=== PATIENT | female | born 1950 | race Caucasian/White ===

== ENCOUNTER → 2019-01-14 09:51 | Outpatient (CLI) | payer MEDICARE, SELFPAY ==
--- NOTE | 2019-01-14 09:56 | XR_ITS ---
XR hand RT min 3V HISTORY: ITS.REASON: pain right index finger ORDERING PHYSICIAN: JERSEY Clarke PATIENT AGE: 68 years COMPARISON: None FINDINGS: There are osteoarthritic changes at the DIP joint of the second digit with bony spurring. No acute fracture or dislocation is evident. There appears to be an old fracture of the base of a bony spur posteriorly at the DIP joint IMPRESSION: Osteoarthritic change of the DIP joint of the second digit with suspected old fracture of a spur posteriorly. No acute fracture apparent
== END ==
PROVIDERS: PCP Emergency Medicine; Visit Provider Physician Assistant
DX: M79.644 Pain in right finger(s) (principal)
CPT/HCPCS: 73130

== ENCOUNTER → 2019-09-21 16:00 | Outpatient (CLI) | payer MEDICARE, SELFPAY ==
[2019-09-24 06:28] LABS: H. pylori Breath Test Negative (Negative)
== END ==
PROVIDERS: Visit Provider Physician Assistant
DX: R10.9 Unspecified abdominal pain (principal)
CPT/HCPCS: 83013

== ENCOUNTER → 2019-11-04 16:51 | Outpatient (CLI) | payer MEDICARE, SELFPAY ==
[2019-11-04 17:26] LABS: Basophils % 0.6 % (0.1-2.0); Eosinophils % 0.5 % (0.1-12.0); Hematocrit 41.8 % (37.0-47.0); Hemoglobin 13.7 g/dL (12.2-16.2); Lymphocytes % 33.3 % (10-50); Mean Corpuscular HGB Conc 32.7 g/dL (31.8-35.4); Mean Corpuscular Hemoglobin 32.4 pg (27.0-31.2); Mean Corpuscular Volume 99.1 fl (81-99); Mean Platelet Volume 8.7 fl (7.4-10.4); Monocytes # 0.3 K/mm3 (0.1-1.0); Monocytes % 4.8 % (1.7-9.3); Neutrophils # 3.7 K/mm3 (1.8-7.8); Neutrophils % 60.9 % (37.0-80.0); Platelet Count 291 K/mm3 (142-424); Red Blood Count 4.22 M/mm3 (4.20-5.40); Red Cell Distribution Width 12.8 % (11.5-17.5)
[2019-11-04 17:30] LABS: Alanine Aminotransferase 15 U/L (12-78); Albumin Level 4.5 g/dl (3.5-5.0); Albumin/Globulin Ratio 1.7 (1.1-1.8); Alkaline Phosphatase 105 U/L (38-126); Amylase 80 U/L (30-110); Aspartate Amino Transferase 27 U/L (14-36); Bilirubin,Total 0.2 mg/dl (0.2-1.3); Blood Urea Nitrogen 15 mg/dl (7-17); Calcium 9.8 mg/dl (8.4-10.2); Carbon Dioxide 30 mmol/L (22.0-30.0); Chloride 101 mmol/L (98-107); Chol/HDL Ratio 6.2 (1-3.5); Cholesterol 237 mg/dl (140-200); Estimated Glomerular Filt Rate 99 ml/min (>60); GFR (African American) 120 ML/MIN (>60); Globulin 2.7 g/dL (1.3-3.2); Glucose 83 mg/dl (74-100); HDL Cholesterol 38 mg/dl (40-60); Lipase 95 U/L (23-300); Total Protein,Serum 7.2 g/dl (6.3-8.2); Triglycerides 217 mg/dl (30-150); VLDL Cholesterol 43 mg/dL (0-40)
[2019-11-04 17:40] LABS: Anion Gap 9.2 mEq/L (5-15); Potassium 4.2 mmoL/L (3.5-5.1); Sodium 136 mmol/L (136-145)
[2019-11-04 18:00] LABS: T4 (Thyroxine) 10.9 ug/dl (5.53-11.0)
[2019-11-04 18:14] LABS: Thyroid Stimulating Hormone 2.78 uIU/mL (0.465-4.68)
[2019-11-06 08:45] LABS: Vitamin D 25 Hydroxy 29.1 ng/mL (30.0-100.0)
== END ==
PROVIDERS: Visit Provider Physician Assistant
DX: R10.13 Epigastric pain (principal); I10 Essential (primary) hypertension; F41.9 Anxiety disorder, unspecified; Z80.0 Family history of malignant neoplasm of digestive organs
CPT/HCPCS: 80053; 80061; 82150; 82652; 83520; 83690; 84436; 84443; 85025

== ENCOUNTER → 2019-11-17 14:04 | Outpatient (CLI) | payer MEDICARE, SELFPAY ==
--- NOTE | 2019-11-17 14:04 | CT_ITS ---
PROCEDURE: CT ABDOMEN PELVIS WO CON CLINICAL INDICATION: Epigastric pain, periumbilical pain Periumbilical pain COMPARISON: No exams were available for comparison TECHNIQUE: Axial images obtained with sagittal and coronal reformats. All CT scans at the facility use one or more dose reduction, viz: automated exposure control, ma/kV adjustment per patient size (including targeted exams where dose is matched to indication, i.e. head), or iterative reconstruction technique. FINDINGS: LOWER THORAX: Patchy density is present in the right lung base posteriorly may be due to small area of infiltrate or atelectasis. ABDOMEN & PELVIS: Liver, gallbladder, spleen, adrenal glands, pancreas, and kidneys have an unremarkable unenhanced CT appearance. No evidence of appendicitis or diverticulitis. There is diverticulosis of the descending and sigmoid colon. No intestinal obstruction or free air. There is a mild amount of retained colonic feces. No pelvic mass or abnormal fluid collection. No acute bony anomalies. There is degenerative disc disease at L5-S1. IMPRESSION: 1. No acute abdominal or pelvic findings. 2. Diverticulosis of the descending and sigmoid colon but no evidence of diverticulitis. 3. Patchy density right lung base posteriorly which may be due to small area of atelectasis or infiltrate. Dictated by: Paul Muller MD 11/18/2019 13:27 Electronically signed by Paul Muller MD in [facility] 11/18/2019 13:27
== END ==
PROVIDERS: PCP Physician Assistant; Visit Provider Physician Assistant
DX: R10.13 Epigastric pain (principal)
CPT/HCPCS: 74176

== ENCOUNTER → 2020-10-13 11:12 | Outpatient (CLI) | payer MEDICARE, SELFPAY ==
[2020-10-13 11:37] LABS: Basophils % 0.6 % (0.1-2.0); Eosinophils # 0.1 K/mm3 (0.0-0.4); Eosinophils % 1.1 % (0.1-12.0); Hematocrit 46.7 % (37.0-47.0); Hemoglobin 15.4 g/dL (12.2-16.2); Lymphocytes # 1.5 K/mm3 (0.7-4.5); Lymphocytes % 25.9 % (10-50); Mean Corpuscular HGB Conc 32.9 g/dL (31.8-35.4); Mean Corpuscular Hemoglobin 32.5 pg (27.0-31.2); Mean Corpuscular Volume 98.6 fl (81-99); Mean Platelet Volume 8.4 fl (7.4-10.4); Monocytes # 0.3 K/mm3 (0.1-1.0); Monocytes % 4.7 % (1.7-9.3); Neutrophils % 67.7 % (37.0-80.0); Platelet Count 276 K/mm3 (142-424); Red Blood Count 4.73 M/mm3 (4.20-5.40); Red Cell Distribution Width 13.3 % (11.5-17.5); White Blood Count 5.9 K/mm3 (4.8-10.8)
[2020-10-13 12:31] LABS: Alanine Aminotransferase 12 U/L (12-78); Albumin Level 4.8 g/dl (3.5-5.0); Albumin/Globulin Ratio 1.8 (1.1-1.8); Alkaline Phosphatase 87 U/L (38-126); Anion Gap 12.7 mEq/L (5-15); Aspartate Amino Transferase 22 U/L (14-36); Bilirubin,Total 0.4 mg/dl (0.2-1.3); Blood Urea Nitrogen 11 mg/dl (7-17); Calcium 9.9 mg/dl (8.4-10.2); Carbon Dioxide 34 mmol/L (22.0-30.0); Chloride 100 mmol/L (98-107); Chol/HDL Ratio 4.3 (1-3.5); Cholesterol 200 mg/dl (140-200); Estimated Glomerular Filt Rate 99 ml/min (>60); GFR (African American) 120 ML/MIN (>60); Globulin 2.7 g/dL (1.3-3.2); Glucose 107 mg/dl (74-100); HDL Cholesterol 46 mg/dl (40-60); Potassium 3.7 mmoL/L (3.5-5.1); Sodium 143 mmol/L (136-145); Total Protein,Serum 7.5 g/dl (6.3-8.2); Triglycerides 124 mg/dl (30-150); VLDL Cholesterol 25 mg/dL (0-40)
[2020-10-13 12:42] LABS: Direct LDL Cholesterol 126.25 mg/dL (100-129)
[2020-10-13 13:01] LABS: Thyroid Stimulating Hormone 1.32 uIU/mL (0.465-4.68)
[2020-10-15 22:02] LABS: H. pylori Breath Test Negative (Negative)
== END ==
PROVIDERS: Visit Provider Nurse Practitioner Family
DX: R10.9 Unspecified abdominal pain (principal); E78.5 Hyperlipidemia, unspecified
CPT/HCPCS: 36415; 80053; 80061; 83013; 84436; 84443; 85025

== ENCOUNTER → 2020-11-10 09:19 | Outpatient (CLI) | payer MEDICARE, SELFPAY ==
--- NOTE | 2020-11-10 09:19 | US_ITS ---
PROCEDURE: US ABDOMEN LIMITED CLINICAL INDICATION: upper gastric pain COMPARISON: No exams were available for comparison FINDINGS: PANCREAS: Unremarkable. No obvious mass or abnormal fluid collection. No ductal dilatation LIVER: No focal liver lesions demonstrated. Homogeneous echogenicity. No intrahepatic biliary ductal dilatation evident. There is appropriate direction of blood flow within a non dilated portal vein RIGHT KIDNEY: Unremarkable. Normal size and echogenicity. No hydronephrosis GALLBLADDER: No gallstones, gallbladder wall thickening, pericholecystic fluid, or biliary dilatation. Minimal amount of sludge noted in the gallbladder. IMPRESSION: Minimal amount of sludge in the gallbladder otherwise negative. No shadowing stones. Dictated by: Paul Muller MD 11/10/2020 17:52 Paul Muller MD in [facility] 11/10/2020 17:52
== END ==
PROVIDERS: PCP Physician Assistant; Visit Provider Nurse Practitioner Family
DX: R10.9 Unspecified abdominal pain (principal)
CPT/HCPCS: 76705

== ENCOUNTER → 2020-11-21 10:07 | Outpatient (CLI) | payer MEDICARE, SELFPAY ==
--- NOTE | 2020-11-21 10:07 | NM_ITS ---
PROCEDURE: NM HEPATOBILIARY WO PHARM CLINICAL INDICATION: abd pain COMPARISON: No exams were available for comparison TECHNIQUE: DOSE: 8.16 mCi technetium Choletec. FINDINGS: Homogeneous activity is present within the hepatic parenchyma. Activity is present in the gallbladder by 5 minutes. Activity is present in the small bowel by 60 minutes. The gallbladder ejection fraction is calculated to be 82 percent.. The patient drank Ensure for fatty meal with no pain involved. IMPRESSION: No evidence of common or cystic duct obstruction with normal gallbladder ejection fraction. Unremarkable hepatobiliary scan Dictated by: Paul Muller MD 11/21/2020 18:43 Paul Muller MD in [facility] 11/21/2020 18:43
--- NOTE | 2020-11-21 10:46 | HMH.ITSHM ---
Current Home Medications as stated by this patient Montse Salinas or operations representative. []CALCIUM
== END ==
PROVIDERS: PCP Nurse Practitioner Family; Visit Provider Nurse Practitioner Family
DX: R93.2 Abnormal findings on diagnostic imaging of liver and biliary tract (principal)
CPT/HCPCS: 78226; A9537

== ENCOUNTER → 2020-12-02 10:11 | Outpatient (CLI) | payer MEDICARE, SELFPAY ==
[2020-12-02 11:35] LABS: Coronavirus 19 IgG Antibody Positive (Negative); Coronavirus 19 IgM Antibody Negative (Negative)
== END ==
PROVIDERS: Visit Provider Internal Medicine Gastroenterology
DX: Z01.818 Encounter for other preprocedural examination (principal); Z20.822 Contact with and (suspected) exposure to COVID-19; Z13.810 Encounter for screening for upper gastrointestinal disorder
CPT/HCPCS: 36415; 86328

== ENCOUNTER 2020-12-04 10:35 | Day surgery (SDC) | payer MEDICARE, SELFPAY ==
[2020-11-28 09:31] VITALS: BMI 19.5
[2020-12-04 10:50] VITALS: BP 138/71; PULSE 75; RESP 18; TEMP 36.4; O2SAT 98
[2020-12-04 11:24] VITALS: O2SAT 95
--- NOTE | 2020-12-04 11:45 | HMH.PROC ---
[facility] Procedure Note Procedure Note:: Upper Endoscopy Procedure Report: Esophagogastroduodenoscopy with cold biopsies Endoscopost: Juan Handy II, MD Referring Physician: MERE Arana Date of Procedure: December 04, 2020 Equipment: Olympus GIF 190 standard upper endoscope Sedation: MAC sedation Indications: Mrs. Salinas is a 70-year-old female who has a long history of irritable bowel syndrome (IBS diarrhea) since the mid . Over the last year, she has had more epigastric and left upper quadrant abdominal discomfort. This has progressively worsened. She has some occasional bloating and seldom nausea. She does have some belching. She reports no heartburn, reflux or dysphagia. She has had no early satiety or weight loss. She reports no melena or hematochezia. She does state that her symptoms are worsened 1 time a month and she attributes this to something external (possibly water treatment). The patient does take ibuprofen 2 or 3 times weekly. She does have numerous drug allergies. Procedure: Prior to the procedure, a history and physical exam was performed, and patient's medications and allergies were reviewed. The risks, benefits and alternatives of the sedation and procedure were discussed with the patient. All questions were answered and informed consent was obtained. The patient was brought to the procedure room. Patient identification and proposed procedure were verified by the physician and the nurse. The patient was placed in a left lateral decubitus position and the scope was passed under direct vision. Throughout the procedure, the patient's blood pressure, pulse, and oxygen saturations were monitored continuously. The upper GI endoscopy was accomplished without difficulty. The patient tolerated the procedure well. Findings: The scope was passed directly into the upper esophagus and advanced to the third portion of the duodenum. The post bulbar duodenum and duodenal bulb were normal with normal mucosa and conniventes. Cold biopsies were taken from the post bulbar duodenum and duodenal bulb to rule out celiac disease. The scope was withdrawn through a normal duodenal bulb and pylorus into the stomach. There was bile reflux with moderate linear reactive gastropathy of the antrum, body and fundus with some erosive gastropathy. Upon retroflexion there was no hiatal hernia. 2 biopsies were taken in the antrum and along the lesser curvature for histology to rule out gastritis and/or H pylori. The scope was then withdrawn into the esophagus. There was no evidence of reflux esophagitis or Aguiar's. The remainder of the esophageal mucosa was normal. Impression: 1. Bile reflux with linear erosive gastropathy Plan: I will follow-up the biopsies. The patient does have functional dyspepsia associated with her IBS. We will discuss dietary measures and treatment options. I would recommend C 13 sucrose breath testing.
[2020-12-04 11:46] VITALS: BP 119/65; PULSE 60; RESP 18; TEMP 36.2; O2SAT 96
[2020-12-04 11:56] VITALS: BP 119/59; PULSE 50; RESP 16; O2SAT 99
[2020-12-04 12:06] VITALS: BP 136/61; PULSE 50; RESP 16; O2SAT 98
[2020-12-04 12:16] VITALS: BP 123/68; PULSE 50; RESP 16; TEMP 36.2; O2SAT 98
--- NOTE | 2020-12-04 15:14 | HMH.ANESCL ---
[facility] Anesthesia Checklist - Patient Identification Patient Identification: Arm Band - Structural Data Admitted From: Home Planned Operative Procedure/s: egd Consent for Planned Operative Procedure(s) Verified: Yes Verified Documents: Surgical Consent, History and Physical - NPO Status Verified Time NPO: 00:00 - Additional verifications Anesthesia Reactions: No - Airway Assessment C-Spine Mobility Assessed: Yes (mp2) TMJ Mobility Assessed: Yes Dentition: Dentures-good fit - Neurological Assessment Level of Consciousness: Awake, Alert - Anesthesia Plan Anesthesia Risk discussed: Yes Anesthesia Plan: Verified ASA Class: II Anesthesia Type: MAC [facility] History I have reviewed the patient's past medical history: Yes Medical History: Reports:: Palpitations Denies:: Cancer, Chronic Obstructive Pulmonary Disease (COPD), Diabetes Mellitus Type 1, Diabetes Mellitus Type 2, MRSA, Seizures *Have you ever received a pneumonia vaccine?: Yes *Have you received a flu vaccine this season?: Yes Other Medical History: Reports: Arthritis, Other Anesthesia experience/problems:: nac Other Surgeries: Yes: Cardiac Catheterization, Colonoscopy, Other Amputation: No Fractures: No - *Social History Last grade of school completed: High school graduate Smoking Status: Current some day smoker Tobacco Type: cigarettes # Packs/Day (cigarettes): 1 Alcohol Intake: never Substance Use Type: denies use *Occupational Status:: other *Travel in the last 8 weeks: None Family Hx:: Cancer, Hypertension, Heart Attack, Stroke
== END 2020-12-04 12:18 | disposition home or self-care (01) ==
LOC: OUTP 10:37
PROVIDERS: PCP Nurse Practitioner Family; Visit Provider Internal Medicine Gastroenterology
PROC: 0DJ08ZZ Inspection of Upper Intestinal Tract, Via Natural or Artificial Opening Endoscopic (ICD-10-PCS; CPT 43235; principal; 2020-12-04 11:30)
DX: K21.9 Gastro-esophageal reflux disease without esophagitis (principal); K31.9 Disease of stomach and duodenum, unspecified; R00.2 Palpitations; M19.90 Unspecified osteoarthritis, unspecified site; Z72.0 Tobacco use; Z80.9 Family history of malignant neoplasm, unspecified; Z82.49 Family history of ischemic heart disease and other diseases of the circulatory system; Z82.3 Family history of stroke; Z88.6 Allergy status to analgesic agent; Z88.8 Allergy status to other drugs, medicaments and biological substances; Z91.048 Other nonmedicinal substance allergy status
CPT/HCPCS: 43239; 88305

== ENCOUNTER → 2021-03-27 08:49 | Outpatient (CLI) | payer MEDICARE, SELFPAY ==
--- NOTE | 2021-03-27 08:54 | XR_ITS ---
PROCEDURE: XR KNEE RT 4V CLINICAL INDICATION: right knee pain COMPARISON: No exams were available for comparison FINDINGS: No fracture or dislocation. No lytic or blastic change. There is normal mineralization. There is decrease in the joint space medially which may be seen with mild osteoarthritic change. No osteophytes or significant osteosclerosis. IMPRESSION: Minimal osteoarthritic change medial compartment Dictated by: Paul Muller MD 03/27/2021 09:28 Paul Muller MD in [place] 03/27/2021 09:28
--- NOTE | 2021-03-27 08:54 | XR_ITS ---
PROCEDURE: XR HIP RT 2-3V W/PELVIS CLINICAL INDICATION: right hip pain COMPARISON: CR,DX BONE BONE DENSITOMETRY(HIP:LT SPINE from 11/04/2013 CR BONE3 BONE DENSITOMETRY(HIP:LT SPINE from 07/08/2016 FINDINGS: No fracture or dislocation is evident. No significant degenerative change. No lytic or blastic change. Unremarkable soft tissues.. There is generalized vascular calcification. Mild osteoarthritic changes are present involving the left SI joint. IMPRESSION: Negative right hip. Mild osteoarthritic change of the left SI joint Dictated by: Paul Mullre MD 03/27/2021 09:29 Paul Muller MD in [facility] 03/27/2021 09:29
== END ==
PROVIDERS: PCP Emergency Medicine; Visit Provider Orthopaedic Surgery
DX: M25.551 Pain in right hip (principal); M25.561 Pain in right knee
CPT/HCPCS: 73502; 73564

== ENCOUNTER → 2021-05-28 18:11 | Outpatient (CLI) | payer MEDICARE, SELFPAY ==
[2021-05-28 19:05] LABS: Basophils # 0.1 K/mm3 (0-0.2); Basophils % 0.9 % (0.1-2.0); Eosinophils # 0.1 K/mm3 (0.0-0.4); Eosinophils % 1.1 % (0.1-12.0); Hematocrit 44.1 % (37.0-47.0); Hemoglobin 14.9 g/dL (12.2-16.2); Lymphocytes # 2.4 K/mm3 (0.7-4.5); Lymphocytes % 34.2 % (10-50); Mean Corpuscular HGB Conc 33.7 g/dL (31.8-35.4); Mean Corpuscular Hemoglobin 32.5 pg (27.0-31.2); Mean Corpuscular Volume 96.4 fl (81-99); Mean Platelet Volume 7.7 fl (7.4-10.4); Monocytes # 0.3 K/mm3 (0.1-1.0); Monocytes % 4.4 % (1.7-9.3); Neutrophils # 4.2 K/mm3 (1.8-7.8); Neutrophils % 59.5 % (37.0-80.0); Platelet Count 398 K/mm3 (142-424); Red Blood Count 4.58 M/mm3 (4.20-5.40); Red Cell Distribution Width 12.2 % (11.5-17.5)
[2021-05-28 19:40] LABS: Chloride 99 mmol/L (98-107); Potassium 3.8 mmoL/L (3.5-5.1); Sodium 140 mmol/L (136-145)
[2021-05-28 19:43] LABS: Alanine Aminotransferase 13 U/L (12-78); Albumin Level 4.3 g/dl (3.5-5.0); Albumin/Globulin Ratio 1.5 (1.1-1.8); Alkaline Phosphatase 97 U/L (38-126); Anion Gap 15.8 mEq/L (5-15); Aspartate Amino Transferase 23 U/L (14-36); Blood Urea Nitrogen 9 mg/dl (7-17); Carbon Dioxide 29 mmol/L (22.0-30.0); Estimated Glomerular Filt Rate 99 ml/min (>60); GFR (African American) 119 ML/MIN (>60); Globulin 2.8 g/dL (1.3-3.2); Total Protein,Serum 7.1 g/dl (6.3-8.2)
[2021-05-28 19:44] LABS: Calcium 9.4 mg/dl (8.4-10.2); Glucose 81 mg/dl (74-100)
[2021-05-28 19:45] LABS: Bilirubin,Total 0.1 mg/dl (0.2-1.3)
[2021-05-28 20:14] LABS: Thyroid Stimulating Hormone 1.05 uIU/mL (0.465-4.68)
[2021-05-30 06:30] LABS: HIV Screen 4th Generation wRfx Non Reactive (Non Reactive); Hep A Ab, IgM Negative (Negative); Hep A Ab, Total Negative (Negative); Hep B Core Ab, Total Negative (Negative); Hep B Surface Ab, Qual Non Reactive (.); Hepatitis B Surface Antigen Negative (Negative); Hepatitis C Antibody <0.1 s/co ratio (0.0-0.9)
[2021-05-31 04:14] LABS: ALT (SGPT) P5P 15 IU/L (0-40); Alpha 2-Macroglobulins, Qn 183 mg/dL (110-276); Apolipoprotein A-1 138 mg/dL (116-209); Bilirubin, Total 0.1 mg/dL (0.0-1.2); Fibrosis Score 0.04 (0.00-0.21); GGT 11 IU/L (0-60); Haptoglobin 332 mg/dL (42-346); Necroinflammat Activity Grade A0-No activity (.); Necroinflammat Activity Score 0.03 (0.00-0.17)
== END ==
PROVIDERS: Visit Provider Family Medicine
DX: I10 Essential (primary) hypertension (principal); Z20.5 Contact with and (suspected) exposure to viral hepatitis; N39.0 Urinary tract infection, site not specified; Z09 Encounter for follow-up examination after completed treatment for conditions other than malignant neoplasm; R33.9 Retention of urine, unspecified; Z11.4 Encounter for screening for human immunodeficiency virus [HIV]; B96.89 Other specified bacterial agents as the cause of diseases classified elsewhere; E80.7 Disorder of bilirubin metabolism, unspecified
CPT/HCPCS: 80053; 81596; 84443; 85025; 86703; 86704; 86706; 86708; 87086; 87088; 87340; 87380; 87522; G0432

== ENCOUNTER → 2021-06-15 07:52 | Outpatient (CLI) | payer MEDICARE, SELFPAY ==
--- NOTE | 2021-06-15 07:53 | CT_ITS ---
PROCEDURE: CT ABDOMEN PELVIS WO CON CLINICAL INDICATION: urinary retention, rlq pain COMPARISON: CT CT ABDOMEN PELVIS WO CON from 11/17/2019 TECHNIQUE: Axial images obtained with sagittal and coronal reformats. All CT scans at the facility use one or more dose reduction, viz: automated exposure control, ma/kV adjustment per patient size (including targeted exams where dose is matched to indication, i.e. head), or iterative reconstruction technique. FINDINGS: LOWER THORAX: Scarring is present in the lung bases ABDOMEN & PELVIS: The liver, gallbladder, spleen, adrenal glands, pancreas, and kidneys have an unremarkable appearance. No renal or ureteral calculi. No intestinal obstruction or free air. No evidence of appendicitis. There is diverticulosis of the descending and sigmoid colon. No evidence of diverticulitis. No pelvic mass or abnormal fluid collection. Multiple unopacified bowel loops in the abdomen or pelvis which could obscure or mimic pathology. If symptoms persist, consider repeat exam with IV and oral contrast. Atherosclerotic changes involve the aortoiliac vessels with suspected occlusion or critical stenosis of the proximal aspect of the right common iliac artery Degenerative disc disease L5-S1 with 5 mm anterolisthesis of L5. IMPRESSION: No acute finding. Colonic diverticulosis. No evidence of diverticulitis. 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 Dictated by: Paul Muller MD 06/16/2021 11:06 Paul Muller MD in [facility] 06/16/2021 11:06
== END ==
PROVIDERS: PCP Emergency Medicine; Visit Provider Family Medicine
DX: R10.31 Right lower quadrant pain (principal); R33.9 Retention of urine, unspecified
CPT/HCPCS: 74176

== ENCOUNTER 2021-12-12 08:14 | Emergency (ER) | payer MEDICARE, SELFPAY ==
--- NOTE | 2021-12-12 08:13 | ECG_ITS ---
APPROVED REPORT Exam: Resting ECG HR:95 bpm ECG Measurements Heart Rate 95 AXES WI 171 P 90 QRSd 81 QRS 39 QT 339 T 86 QTc 392 Conclusion SINUS RHYTHM Biatrial abnormality BORDERLINE ECG UNCONFIRMED REPORT Electronically signed by : Jackson Guadalupe MD 12/13/2021 16:02:26
[2021-12-12 08:14] VITALS: BP 125/70; PULSE 90; RESP 19; TEMP 37.1; O2SAT 98; BMI 17.7
--- NOTE | 2021-12-12 08:16 | HMH.EDGENADL ---
ED Disposition Clinical Impression: Influenza A Strain of chest wall Qualifiers: Encounter type: initial encounter Qualified Code(s): S29.011A - Strain of muscle and tendon of front wall of thorax, initial encounter Disposition: Home, Self-Care Condition on Discharge: Good Instructions: DI for Influenza -- Adult Additional Instructions: Rest and drink plenty of fluids. Tylenol or ibuprofen for pain and fever. Benzonatate Perles as needed for cough. Follow-up with primary care provider if not improved next week. Prescriptions: Benzonatate [Benzonatate 100mg cap] 100 mg PO TIDP PRN #15 cap PRN Reason: Cough Transmission Status: Received by [facility] #[id number] Referrals: Rex Cherry MD [Primary Care Provider] - - Critical Care Critical Care Time: No Attestation: On , the high probability of a clinically significant, sudden or life threatening deterioration of the following system(s) required my full and direct attention, intervention and personal management. The time I documented below is in addition to time spent performing reported procedures but includes the following listed in this critical care notation. Medical Decision Making - [place] Inquiry Pt receiving controlled substance: No Vital Signs: 12/12/21 08:14 12/12/21 08:30 12/12/21 09:30 Temperature 98.8 F Temperature Source Oral Pulse Rate 98 H 69 Pulse Rate [Right Radial] 90 Respiratory Rate 19 18 21 Blood Pressure 122/69 144/69 H Blood Pressure [Right Arm] 125/70 Blood Pressure Mean 105 94 Blood Pressure Mean [Right Arm] 88 02 Sat by Pulse Oximetry 98 95 93 L 12/12/21 10:18 Temperature 98.8 F Temperature Source Pulse Rate 70 Pulse Rate [Right Radial] Respiratory Rate 28 H Blood Pressure 141/65 H Blood Pressure [Right Arm] Blood Pressure Mean Blood Pressure Mean [Right Arm] 02 Sat by Pulse Oximetry - Lab Data Lab Results 12/12/21 08:20: WBC 3.7 L, RBC 4.50, Hgb 14.5, Hct 43.9, MCV 97.5, MCH 32.2 H, MCHC 33.0, RDW 13.8, Plt Count 199, MPV 8.7, Neut % (Auto) 77.3, Lymph % (Auto) 11.1, [place] % (Auto) 8.1, Eos % (Auto) 0.6, Baso % (Auto) 2.9 H, Neut # (Auto) 2.8, Lymph # (Auto) 0.4 L, [place] # (Auto) 0.3, Eos # (Auto) 0.0, Baso # (Auto) 0.1 12/12/21 08:20: Sodium 136, Potassium 3.8, Chloride 100, Carbon Dioxide 27, Anion Gap 12.8, BUN 11, Creatinine 0.60, Estimated Creat Clear 41, Estimated GFR 99, Est GFR ( Amer) 119, Glucose 96, Calcium 8.9 12/12/21 08:20: Troponin I < 0.01 12/12/21 08:43: SARS-CoV-2 (PCR) Not detected, Influenza A Untype (PCR) Detected A, Influenza Type B (PCR) Not detected Result diagrams: 12/12/21 08:20 12/12/21 08:20 Orders (Tests/Meds): ED MEDICATIONS Discontinued Medications Generic Name Dose Route Start Last Admin Trade Name Freq PRN Reason Stop Dose Admin Sodium Chloride 10 ml 12/12/21 08:28 Sodium Chloride 0.9% 10ml Flush Syringe IV 01/11/22 08:27 NEEDED PRN Maintain IV Site - Radiology Data #1 Image(s): Chest (+ ribs) Image Reviewed: Yes I reviewed the patient's radiology image, Yes I have reviewed radiologist's interpretation Procedure(s): XR ribs BI min 4V w CXR1V Accession Number(s): [id number] cc: Rex Cherry MD; Mohinder Reyes MD~ FINAL REPORT CLINICAL HISTORY: ribs hurt, cough, no injury FINDINGS: BILATERAL RIB SERIES Three views of the bilateral ribs show no fractures. There is no pneumothorax or pleural fluid collection. IMPRESSION: Negative bilateral rib series. No pneumothorax. Reviewed, Interpreted and Dictated by Mohinder Reyes III, MD Transcribed by Ruth Ann De La O Authenticated by Mohinder Reyes III, MD on 12/12/2021 09:55:[address] [facility] Procedure(s): XR chest 2V Accession Number(s): [id number] cc: Rex Cherry MD; Mohinder Reyes MD~ FINAL REPORT CLINICAL HISTORY: cough, fever, rib pain, smoker FINDINGS: Two views of t
--- NOTE | 2021-12-12 08:28 | XR_ITS ---
FINAL REPORT CLINICAL HISTORY: ribs hurt, cough, no injury FINDINGS: BILATERAL RIB SERIES Three views of the bilateral ribs show no fractures. There is no pneumothorax or pleural fluid collection. IMPRESSION: Negative bilateral rib series. No pneumothorax. Reviewed, Interpreted and Dictated by Mohinder Reyes III, MD Transcribed by Ruth Ann De La O Authenticated by Mohinder Reyes III, MD on 12/12/2021 09:55:16 AM [facility]
--- NOTE | 2021-12-12 08:28 | XR_ITS ---
FINAL REPORT CLINICAL HISTORY: cough, fever, rib pain, smoker FINDINGS: Two views of the chest were obtained. The heart size and pulmonary vascularity are within normal limits. The mediastinum is normal. There is bilateral apical scarring and pleural thickening. There is no pneumothorax. The bony thorax is intact. IMPRESSION: Bilateral apical scarring and pleural thickening. Reviewed, Interpreted and Dictated by Mohinder Reyes III, MD Transcribed by Ruth Ann De La O Authenticated by Mohinder Reyes III, MD on 12/12/2021 09:55:18 AM [facility]
[2021-12-12 08:30] VITALS: BP 122/69; PULSE 98; RESP 18; O2SAT 95
[2021-12-12 08:35] LABS: Basophils # 0.1 K/mm3 (0-0.2); Basophils % 2.9 % (0.1-2.0); Eosinophils % 0.6 % (0.1-12.0); Hematocrit 43.9 % (37.0-47.0); Hemoglobin 14.5 g/dL (12.2-16.2); Lymphocytes # 0.4 K/mm3 (0.7-4.5); Lymphocytes % 11.1 % (10-50); Mean Corpuscular Hemoglobin 32.2 pg (27.0-31.2); Mean Corpuscular Volume 97.5 fl (81-99); Mean Platelet Volume 8.7 fl (7.4-10.4); Monocytes # 0.3 K/mm3 (0.1-1.0); Monocytes % 8.1 % (1.7-9.3); Neutrophils # 2.8 K/mm3 (1.8-7.8); Neutrophils % 77.3 % (37.0-80.0); Platelet Count 199 K/mm3 (142-424); Red Cell Distribution Width 13.8 % (11.5-17.5); White Blood Count 3.7 K/mm3 (4.8-10.8)
[2021-12-12 08:44] LABS: Anion Gap 12.8 mEq/L (5-15); Blood Urea Nitrogen 11 mg/dl (7-17); Calcium 8.9 mg/dl (8.4-10.2); Carbon Dioxide 27 mmol/L (22.0-30.0); Chloride 100 mmol/L (98-107); Creatinine Clearance Estimated 41 mL/min (50-200); Estimated Glomerular Filt Rate 99 ml/min (>60); GFR (African American) 119 ML/MIN (>60); Glucose 96 mg/dl (74-100); Potassium 3.8 mmoL/L (3.5-5.1); Sodium 136 mmol/L (136-145)
[2021-12-12 08:48] LABS: Coronavirus 19, PCR Not Detected (NotDetected); Influenza B, PCR Not Detected (NotDetected)
--- NOTE | 2021-12-12 09:00 | PC.NURSE ---
to and from ct
[2021-12-12 09:30] VITALS: BP 144/69; PULSE 69; RESP 21; O2SAT 93
[2021-12-12 09:33] LABS: Influenza A, PCR Detected (NotDetected)
[2021-12-12 09:38] LABS: Troponin I < 0.01 ng/ml (0.00-0.034)
[2021-12-12 10:18] VITALS: BP 141/65; PULSE 70; RESP 28; TEMP 37.1; O2SAT 93
== END 2021-12-12 10:19 | disposition home or self-care (01) ==
PROVIDERS: Emergency Provider Emergency Medicine; PCP Emergency Medicine
DX: J10.1 Influenza due to other identified influenza virus with other respiratory manifestations (principal); S29.011A Strain of muscle and tendon of front wall of thorax, initial encounter; F17.210 Nicotine dependence, cigarettes, uncomplicated
CPT/HCPCS: 71046; 71111; 80048; 84484; 85025; 93005; 99283; C9803; U0003; U0005

== ENCOUNTER → 2022-01-22 13:32 | Outpatient (POV) | payer MEDICARE, SELFPAY | PROVIDERS: Visit Provider Dermatology | DX: Z00.00 Encounter for general adult medical examination without abnormal findings (principal) ==

== ENCOUNTER → 2022-06-27 10:27 | Outpatient (CLI) | payer MEDICARE, SELFPAY ==
--- NOTE | 2022-06-27 10:46 | XR_ITS ---
FINAL REPORT CLINICAL HISTORY: right foot pain FINDINGS: Right foot Three views were obtained. There is no acute fracture or dislocation. The bones are osteopenic. The joint spaces appear normal. No soft tissue abnormality is identified. IMPRESSION: No acute process. Reviewed, Interpreted and Dictated by Thomas Alatorre MD Transcribed by Katia Jenkins Authenticated and [facility]
--- NOTE | 2022-06-27 10:46 | XR_ITS ---
FINAL REPORT CLINICAL HISTORY: ankle pain FINDINGS: Right ankle Three views were obtained. There is no acute fracture or dislocation. The joint spaces appear normal. No soft tissue abnormality is identified. IMPRESSION: No acute process. Reviewed, Interpreted and Dictated by Thomas Alatorre MD Transcribed by Katia Jenkins Authenticated and [facility]
--- NOTE | 2022-06-27 10:46 | XR_ITS ---
FINAL REPORT CLINICAL HISTORY: right shoulder pain FINDINGS: Right shoulder Three views were obtained. There is no acute fracture or dislocation. The joint spaces appear normal. No soft tissue abnormality is identified. IMPRESSION: No acute process. Reviewed, Interpreted and Dictated by Thomas Alatorre MD Transcribed by Katia Jenkins Authenticated and [facility]
== END ==
PROVIDERS: PCP Emergency Medicine; Visit Provider Orthopaedic Surgery
DX: M79.671 Pain in right foot (principal); M25.571 Pain in right ankle and joints of right foot; M25.511 Pain in right shoulder
CPT/HCPCS: 73030; 73610; 73630

== ENCOUNTER 2022-06-28 14:30 | Outpatient (RCR) | payer MEDICARE, SELFPAY | END 2022-06-28 15:30 | disposition home or self-care (01) | LOC: PT 14:30 | PROVIDERS: Visit Provider Orthopaedic Surgery | DX: M25.571 Pain in right ankle and joints of right foot (principal) | CPT/HCPCS: 97760 ==

== ENCOUNTER → 2022-07-08 15:44 | Outpatient (CLI) | payer OTHER, SELFPAY ==
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
== END ==
PROVIDERS: PCP Family Medicine; Visit Provider Family Medicine
DX: M54.2 Cervicalgia (principal); M54.6 Pain in thoracic spine; M54.50 Low back pain, unspecified; V89.2XXA Person injured in unspecified motor-vehicle accident, traffic, initial encounter
CPT/HCPCS: 72084; 72220

== ENCOUNTER → 2022-11-18 11:50 | Outpatient (CLI) | payer MEDICARE, SELFPAY | PROVIDERS: PCP Family Medicine; Visit Provider Nurse Practitioner Family | DX: R07.89 Other chest pain (principal); R00.2 Palpitations; R01.1 Cardiac murmur, unspecified; R94.31 Abnormal electrocardiogram [ECG] [EKG] | CPT/HCPCS: 93270 ==

== ENCOUNTER → 2022-11-27 12:52 | Outpatient (CLI) | payer MEDICARE, SELFPAY ==
--- NOTE | 2022-11-27 12:52 | CA_ITS ---
APPROVED REPORT EXAM: Comprehensive 2D, Doppler, and color-flow Echocardiogram Sweatband Shaper: Elsie Diaz CRT Ht: 5 ft 6 in Wt: 106lbs BSA: 1.53 BP: 134/76 mmHg Indications: Murmur, Atrial Fibrillation, Palpitations, Hyperlipidemia, Hypertension/HDD, murmur 2D Dimensions LVOT 1.70 cm (M/F) 1.5-2.5 LA Volume 13.90 mL LA Volume Index 8.90 mL/m2 (M/F) 16-34 M-Mode Dimensions RVDd 2.07 cm (0.9-2.6) LA Diam 2.58 cm (1.9-4.0) LVDd 3.79 cm (3.5-5.7) Ao Diam 2.93 cm (2.0-3.7) LVDs 2.47 cm (3.5-5.7) IVSd 1.21 cm (0.6-1.1) PWd 0.43 cm (0.6-1.1) EF (Teich) 64.80% FS 34.80% EDV (Teich) 61.60 mL TAPSE 2.05 (<1.7) ESV (Teich) 21.70 mL LV Diastology E Decel Time 260.00 (160-240 msec) E/A Ratio 0.76 MED E' 7.60 (< 7 cm/sec) MED A' 16.90 cm/s E'/MED E' Ratio 9.32 (>14) LAT E' 8.30 (<10 cm/sec) LAT A' 12.50 cm/s E/LAT E' Ratio 8.53 (>14) Aortic Valve AO Peak GR. 8.10 mmHg Mitral Valve MV A Velocity 93.00 (40-130 cm/s) E/A Ratio 0.76 MV Decel. Time 260.00 (160-240 ms) Pulmonary Valve PV Peak Velocity 82.00 (50-150 cm/s) Tricuspid Valve TR P. Velocity 190.00 cm/s RAP Estimate 10.00 mmHg RVSP 24.40 mmHg Left Ventricle Left atrium is mildly enlarged, left ventricle normal size mild concentric left ventricular hypertrophy, estimated ejection fraction 55% with no regional wall motion abnormality, grade 1 diastolic dysfunction seen without tissue Doppler evidence of late left atrial pressure. Right Ventricle Right atrium and right ventricular normal size and contractility. Aortic Valve Aortic valve is thickened and calcified without Doppler evidence of aortic stenosis or aortic insufficiency. Mitral Valve Mitral valve is grossly normal, there is trace mitral regurgitation. Tricuspid Valve Tricuspid valve grossly normal, there is trace tricuspid regurgitation, tricuspid regurgitation jet velocity is inadequate for calculation of the right ventricular systolic pressure. Pulmonic Valve Pulmonic valve is poorly visualized. Great Vessels Aortic root is normal size. Inferior vena cava normal size with normal inspiratory collapse. Pericardium No significant pericardial effusion noted. Conclusion 1. Mildly enlarged left atrium, normal left ventricular size mild concentric left ventricular hypertrophy, estimated ejection fraction 55% with no regional wall motion abnormality, grade 1 diastolic dysfunction seen without tissue Doppler evidence of late left atrial pressure. 2. Thickened and calcified aortic valve without aortic stenosis aortic insufficiency. 3. Trace mitral and tricuspid regurgitation. 4. No significant pericardial effusion noted. 5. Inferior vena cava is normal size with normal inspiratory collapse. Electronically signed by : Wilbur Gillis MD 11/28/2022 05:58:12
== END ==
PROVIDERS: PCP Family Medicine; Visit Provider Nurse Practitioner Family
DX: E78.5 Hyperlipidemia, unspecified (principal); I10 Essential (primary) hypertension; I48.0 Paroxysmal atrial fibrillation; I73.9 Peripheral vascular disease, unspecified; R00.2 Palpitations; R01.1 Cardiac murmur, unspecified; R07.89 Other chest pain; R93.5 Abnormal findings on diagnostic imaging of other abdominal regions, including retroperitoneum; R94.31 Abnormal electrocardiogram [ECG] [EKG]
CPT/HCPCS: 93306

== ENCOUNTER → 2022-12-09 07:10 | Outpatient (CLI) | payer MEDICARE, SELFPAY ==
[2022-12-09 07:41] VITALS: BMI 16.9
[2022-12-09 07:51] VITALS: BP 166/70; PULSE 63; RESP 16; TEMP 36.5; O2SAT 97
[2022-12-09 08:17] LABS: Alanine Aminotransferase 28 U/L (12-78); Albumin Level 3.8 g/dl (3.5-5.0); Albumin/Globulin Ratio 1.7 (1.1-1.8); Alkaline Phosphatase 101 U/L (38-126); Anion Gap 7.8 mEq/L (5-15); Aspartate Amino Transferase 25 U/L (14-36); Bilirubin,Total 0.3 mg/dl (0.2-1.3); Blood Urea Nitrogen 10 mg/dl (7-17); Calcium 8.5 mg/dl (8.4-10.2); Carbon Dioxide 33 mmol/L (22.0-30.0); Chloride 103 mmol/L (98-107); Creatinine Clearance Estimated 38 mL/min (50-200); Estimated Glomerular Filt Rate 121 ml/min (>60); GFR (African American) 147 ML/MIN (>60); Globulin 2.3 g/dL (1.3-3.2); Glucose 94 mg/dl (74-100); Potassium 3.8 mmoL/L (3.5-5.1); Sodium 140 mmol/L (136-145); Total Protein,Serum 6.1 g/dl (6.3-8.2)
[2022-12-09 09:10] VITALS: BP 151/58; PULSE 53; RESP 18; O2SAT 98
== END ==
PROVIDERS: PCP Family Medicine; Visit Provider Nurse Practitioner Family
DX: E78.5 Hyperlipidemia, unspecified (principal); I10 Essential (primary) hypertension; I48.0 Paroxysmal atrial fibrillation; I73.9 Peripheral vascular disease, unspecified; R00.2 Palpitations; R01.1 Cardiac murmur, unspecified; R07.89 Other chest pain; R93.5 Abnormal findings on diagnostic imaging of other abdominal regions, including retroperitoneum; R94.31 Abnormal electrocardiogram [ECG] [EKG]
CPT/HCPCS: 75574; 80053; Q9967

== ENCOUNTER 2022-12-12 09:31 | Day surgery (SDC) | payer MEDICARE, SELFPAY ==
[2022-12-12] VITALS (12 sets, daily range): BP systolic 97–162; BP diastolic 53–71; PULSE 52–93; RESP 13–18; TEMP 36.9; O2SAT 93–98; BMI 17.9
--- NOTE | 2022-12-12 07:11 | IR_ITS ---
APPROVED REPORT Patient Location: Outpatient PROCEDURES Left heart catheterization Left ventriculogram Selective coronary angiogram Pigtail catheter placed in the abdominal aorta Abdominal aortography Right and left femoral arterial access Right retrograde femoral angiogram Bare-metal stent deployment to the distal abdominal aorta reconstructing the aortic bifurcation Bare-metal stent deployment to the bilateral common iliac arteries Bare-metal stent deployment to the bilateral external iliac arteries INDICATION Coronary artery disease, Angina pectoris, Occluded right common iliac artery stenosis Informed consent was obtained prior to the procedure. COMPLICATIONS None Estimated Blood Loss: Less than 10 mls TECHNIQUE 1% lidocaine used anesthetize the left groin and the left femoral artery was accessed via the Salinger technique and a 5 [place] sheath was placed in the left femoral artery. A JL 4 JR 4 catheter used to perform left heart catheterization left ventriculogram and selective coronary angiography. At the end the diagnostic angiogram a pigtail catheter was placed in the abdominal aorta where abdominal aortography was performed. Following this 1% lidocaine was used anesthetize the right groin and the right femoral artery was accessed via the Salinger technique. A 6 [place] sheath was placed in the right femoral artery. A wire exchange was then used and placed in the abdominal aorta through the left groin pigtail catheter. An additional advantage wire was used to push through the 100% occluded right common iliac artery therapeutic heparin was administered giving a therapeutic ACT. The left femoral artery sheath was exchanged for a 6 [place] sheath. Two 8 mm x 57 mm EV 3 stents were placed in the distal abdominal aorta extending into the right and left common iliac artery. Both were deployed at 10 ruth. An additional 8 mm x 57 mm EV 3 stent was placed distal to the first stent in the right external iliac artery yet still overlapping it and deployed at 10 ruth. The balloon was were advanced and deployed at 12 ruth to mesh the 2 stents. An 9 mm x 40 mm self-expanding stent was then placed into the left external iliac artery distal to the first stent yet still overlapping it. An 8 mm balloon was then deployed at 12 ruth to post dilate. After achieving excellent angiographic results with reconstruction of the aortic bifurcation the apparatus was removed both groins were reprepped gloves were changed both sheaths were removed with good hemostasis being achieved using Perclose device in each groin. Patient was transferred to the postop holding in stable condition ANGIOGRAPHIC RESULTS The left main artery Normal The left anterior descending artery Has proximal 10% and 20% stenoses with mid vessel 10% stenosis The circumflex artery Is a dominant vessel and has 10% proximal stenoses with a mid vessel 50 to 60% calcified concentric stenosis. The right coronary artery Vestigial normal The ROSADO ventriculogram reveals Normal 65% The left ventricular end-diastolic pressure Less than 10 mm Distal abdominal aorta is calcified with distal 30% stenoses Right common iliac artery is ostially occluded and calcified. The mid and distal portion is patent the right internal iliac artery is patent as is the right external iliac artery and right common femoral artery Left common iliac artery has an ostial eccentric 30% stenoses. The left external iliac artery has an eccentric 50% stenosis while the left internal iliac artery is occluded. The left common femoral arteries widely patent IMPRESSION Moderate to severe coronary disease involving the circumflex artery as described above Normal ejection fraction Norm
[2022-12-12 10:20] LABS: Basophils # 0.1 K/mm3 (0-0.2); Eosinophils % 0.7 % (0.1-12.0); Hematocrit 41.3 % (37.0-47.0); Hemoglobin 13.2 g/dL (12.2-16.2); Lymphocytes # 1.4 K/mm3 (0.7-4.5); Lymphocytes % 23.3 % (10-50); Mean Corpuscular Hemoglobin 32.1 pg (27.0-31.2); Mean Corpuscular Volume 100.5 fl (81-99); Mean Platelet Volume 7.9 fl (7.4-10.4); Monocytes # 0.4 K/mm3 (0.1-1.0); Monocytes % 5.6 % (1.7-9.3); Neutrophils # 4.2 K/mm3 (1.8-7.8); Neutrophils % 68.3 % (37.0-80.0); Platelet Count 365 K/mm3 (142-424); Red Blood Count 4.11 M/mm3 (4.20-5.40); Red Cell Distribution Width 12.9 % (11.5-17.5); White Blood Count 6.1 K/mm3 (4.8-10.8)
[2022-12-12 14:45] LABS: CATHL Activated Clotting Time 245 SEC (74-125)
--- NOTE | 2022-12-12 16:16 | SUR.PHASEII ---
PER DR. FULLER PATIENT CAN BE DISCHARGED AT 1630
== END 2022-12-12 16:42 | disposition home or self-care (01) ==
PROVIDERS: PCP Family Medicine; Visit Provider Internal Medicine
DX: E78.5 Hyperlipidemia, unspecified (principal); I10 Essential (primary) hypertension; I25.110 Atherosclerotic heart disease of native coronary artery with unstable angina pectoris; I48.0 Paroxysmal atrial fibrillation; R94.31 Abnormal electrocardiogram [ECG] [EKG]; Z79.01 Long term (current) use of anticoagulants; I77.1 Stricture of artery; I70.211 Atherosclerosis of native arteries of extremities with intermittent claudication, right leg; Z87.891 Personal history of nicotine dependence
CPT/HCPCS: 37221; 37223; 85025; 85347; 93458; 99152; 99153; C1725; C1760; C1769; C1876; C1894; J1644; Q9966; Q9967

== ENCOUNTER → 2023-07-11 09:02 | Outpatient (CLI) | payer MEDICARE, SELFPAY ==
--- NOTE | 2023-07-11 09:12 | XR_ITS ---
FINAL REPORT CLINICAL HISTORY: pain with crepitus FINDINGS: Right shoulder Three views were obtained. There is no acute fracture or dislocation. There are mild AC and glenohumeral joint degenerative changes. No soft tissue abnormality is identified. IMPRESSION: Mild degenerative changes. Reviewed, Interpreted and Dictated by Mohinder Reyes III, MD Transcribed by Katia Jenkins Authenticated and [facility]
== END ==
PROVIDERS: PCP Family Medicine; Visit Provider Family Medicine
DX: M25.511 Pain in right shoulder (principal)
CPT/HCPCS: 73030

== ENCOUNTER → 2023-08-26 12:10 | Outpatient (POV) | payer MEDICARE, SELFPAY | PROVIDERS: PCP Family Medicine; Visit Provider Dermatology | DX: Z00.00 Encounter for general adult medical examination without abnormal findings (principal) ==

== ENCOUNTER 2023-11-13 10:42 | Outpatient (CLI) | payer MEDICARE, SELFPAY ==
[2023-11-13 11:05] LABS: Basophils # 0.1 K/mm3 (0-0.2); Eosinophils % 0.3 % (0.1-12.0); Hematocrit 44.5 % (37.0-47.0); Hemoglobin 14.6 g/dL (12.2-16.2); Lymphocytes # 1.6 K/mm3 (0.7-4.5); Lymphocytes % 27.4 % (10-50); Mean Corpuscular HGB Conc 32.8 g/dL (31.8-35.4); Mean Corpuscular Hemoglobin 33.4 pg (27.0-31.2); Mean Corpuscular Volume 101.9 fl (81-99); Mean Platelet Volume 8.6 fl (7.4-10.4); Monocytes # 0.3 K/mm3 (0.1-1.0); Monocytes % 5.2 % (1.7-9.3); Neutrophils # 3.9 K/mm3 (1.8-7.8); Neutrophils % 66.1 % (37.0-80.0); Platelet Count 258 K/mm3 (142-424); Red Blood Count 4.37 M/mm3 (4.20-5.40); Red Cell Distribution Width 13.3 % (11.5-17.5); White Blood Count 5.9 K/mm3 (4.8-10.8)
[2023-11-13 11:23] LABS: Alanine Aminotransferase 26 U/L (12-78); Albumin Level 4.6 g/dl (3.5-5.0); Alkaline Phosphatase 109 U/L (38-126); Anion Gap 10.1 mEq/L (5-15); Aspartate Amino Transferase 31 U/L (14-36); Bilirubin,Direct 0.2 mg/dl (0.0-0.4); Bilirubin,Indirect 0.3 mg/dL (0.0-0.9); Bilirubin,Total 0.5 mg/dl (0.2-1.3); Bilirubin,Unconjugated 0.4 mg/dL (0.0-1.1); Blood Urea Nitrogen 12 mg/dl (7-17); Calcium 9.4 mg/dl (8.4-10.2); Carbon Dioxide 32 mmol/L (22.0-30.0); Chloride 106 mmol/L (98-107); Chol/HDL Ratio 4.7 (1-3.5); Cholesterol 221 mg/dl (140-200); Estimated Glomerular Filt Rate 82 ml/min (>60); GFR (African American) 99 ML/MIN (>60); Glucose 108 mg/dl (74-100); HDL Cholesterol 47 mg/dl (40-60); Magnesium 2.1 mg/dl (1.6-2.3); Potassium 4.1 mmoL/L (3.5-5.1); Sodium 144 mmol/L (136-145); Total Protein,Serum 7.2 g/dl (6.3-8.2); Triglycerides 155 mg/dl (30-150); VLDL Cholesterol 31 mg/dL (0-40)
[2023-11-13 11:34] LABS: Direct LDL Cholesterol 120.21 mg/dL (100-129)
[2023-11-13 11:52] LABS: Free T4 (Free Thyroxine) 1.04 ng/dl (0.78-2.19)
[2023-11-13 12:06] LABS: Thyroid Stimulating Hormone 0.99 uIU/mL (0.465-4.68)
== END 2023-11-13 23:59 ==
LOC: LAB 10:43
PROVIDERS: PCP Family Medicine; Visit Provider Internal Medicine
DX: E78.5 Hyperlipidemia, unspecified (principal); I48.0 Paroxysmal atrial fibrillation; I73.9 Peripheral vascular disease, unspecified; Z87.891 Personal history of nicotine dependence; Z79.899 Other long term (current) drug therapy
CPT/HCPCS: 36415; 80048; 80061; 80076; 83735; 84439; 84443; 85025

== ENCOUNTER 2023-11-17 12:49 | Outpatient (CLI) | payer MEDICARE, SELFPAY ==
--- NOTE | 2023-11-17 12:49 | CT_ITS ---
FINAL REPORT TECHNIQUE: Thin section axial images were obtained from the lung apices to the upper abdomen by computed tomography. Reformatted images were obtained and reviewed. This study was performed with techniques to keep radiation doses al low as reasonably achievable (ALARA). Individualized dose reduction techniques using automated exposure control or adjustment of mA and/or kV according to the patient's size were employed. CLINICAL HISTORY: lung cancer screening FORMER SMOKER QUIT 8 YEARS AGO. 1/2PPD X 51 YEARS COMPARISON: None FINDINGS: CHEST CT LOW DOSE 72-year-old female, former smoker, quit 8 years ago. 66-mdvt-itov history. CTDI vol (mGy): 2.9 DLP (mGy-cm): 107.59 There is no axillary adenopathy. There is no mediastinal or hilar mass or adenopathy. The heart is normal in size. Mild coronary artery calcification is present. Mild changes of emphysema are identified. Bilateral apical soft tissue is present, most consistent with scar. There is no pericardial or pleural effusion. There are multiple bilateral nodules present, one of the larger measuring 6 mm, in the right middle lobe, seen in image #53. Limited images of the upper abdomen are unremarkable. IMPRESSION: Lung-RADS category 3. Recommend 6 month follow up low dose chest CT. Reviewed, Interpreted and Dictated by Mohinder Reyes III, MD Transcribed by Niki Estevez Authenticated and [facility]
--- NOTE | 2023-11-17 12:49 | CT_ITS ---
FINAL REPORT TECHNIQUE: Thin section axial CT images with coronal and sagittal reformats were performed before and after the administration of IV contrast. This study was performed with techniques to keep radiation doses as low as reasonably achievable (ALARA). Individualized dose reduction techniques using automated exposure control or adjustment of mA and/or kV according to the patient's size were employed. CLINICAL HISTORY: cervical adenopathy COMPARISON: None FINDINGS: CT SOFT TISSUES NECK WITH AND WITHOUT CONTRAST: CT examination of the soft tissues of the neck was performed both with and without intravenous contrast. The oropharynx, nasopharynx, hypopharynx, larynx, and thyroid gland are unremarkable in appearance. Mild degenerative change of the cervical spine is identified. No significant mass or adenopathy are present. There are calcifications in the carotid bifurcations without evidence of significant stenosis. IMPRESSION: Calcifications in the carotid bifurcations without evidence of significant stenosis. No significant mass or adenopathy are identified in the neck soft tissues. Reviewed, Interpreted and Dictated by Mohinder Reyes III, MD Transcribed by Niki Estevez Authenticated and . [facility]
[2023-11-17] MEDS: SODIUM CHLORIDE 0.9% 10ML SYR (RAD ONLY) 10 ML IV (13:19)
[2023-11-17] MEDS: IOPAMIDOL-370 (76%);100ML BOTTLE 75 ML IV (13:19)
== END 2023-11-17 23:59 ==
LOC: RAD 12:49
PROVIDERS: PCP Family Medicine; Visit Provider Family Medicine
DX: Z87.891 Personal history of nicotine dependence (principal); R59.0 Localized enlarged lymph nodes; Z12.2 Encounter for screening for malignant neoplasm of respiratory organs
CPT/HCPCS: 70492; 71271; Q9967

== ENCOUNTER 2024-04-26 10:00 | Outpatient (CLI) | payer MEDICARE, SELFPAY ==
[2024-04-26 21:13] LABS: Erythrocyte Sedimentation Rate 19 mm/hr (0-30)
[2024-04-26 21:16] LABS: Basophils # 0.1 K/mm3 (0-0.2); Basophils % 1.1 % (0.1-2.0); Eosinophils % 0.4 % (0.1-12.0); Hematocrit 48.3 % (37.0-47.0); Hemoglobin 15.1 g/dL (12.2-16.2); Lymphocytes # 1.6 K/mm3 (0.7-4.5); Lymphocytes % 25.5 % (10-50); Mean Corpuscular HGB Conc 31.2 g/dL (31.8-35.4); Mean Corpuscular Hemoglobin 32.8 pg (27.0-31.2); Mean Corpuscular Volume 105.3 fl (81-99); Mean Platelet Volume 9.1 fl (7.4-10.4); Monocytes # 0.4 K/mm3 (0.1-1.0); Monocytes % 5.6 % (1.7-9.3); Neutrophils # 4.2 K/mm3 (1.8-7.8); Neutrophils % 67.4 % (37.0-80.0); Platelet Count 380 K/mm3 (142-424); Red Blood Count 4.59 M/mm3 (4.20-5.40); Red Cell Distribution Width 13.1 % (11.5-17.5); White Blood Count 6.3 K/mm3 (4.8-10.8)
[2024-04-26 21:56] LABS: C-Reactive Protein 1.3 mg/L (0-4)
[2024-04-28 14:40] LABS: Lyme Ab CIA Negative (Negative)
== END 2024-04-26 23:59 | disposition home or self-care (01) ==
LOC: LAB.DROPOF 04-27 15:04
PROVIDERS: PCP Nurse Practitioner; Visit Provider Nurse Practitioner
DX: N39.0 Urinary tract infection, site not specified (principal); S80.862A Insect bite (nonvenomous), left lower leg, initial encounter; W57.XXXA Bitten or stung by nonvenomous insect and other nonvenomous arthropods, initial encounter
CPT/HCPCS: 85025; 85651; 86140; 86618; 87086

== ENCOUNTER 2024-05-19 18:58 | Outpatient (CLI) | payer MEDICARE, SELFPAY | END 2024-05-19 23:59 | disposition home or self-care (01) | LOC: LAB.DROPOF 18:58 | PROVIDERS: PCP Nurse Practitioner; Visit Provider Nurse Practitioner | DX: R30.0 Dysuria (principal); N39.0 Urinary tract infection, site not specified | CPT/HCPCS: 87086 ==

== ENCOUNTER 2024-07-25 08:59 | Emergency (ER) | payer MEDICARE, SELFPAY ==
[2024-07-25 09:15] VITALS: BP 143/63; PULSE 63; RESP 18; TEMP 36.8; O2SAT 98; BMI 19.5
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
[2024-07-25] MEDS: cefTRIAXone 1GM VIAL 1 GM IM (10:07)
[2024-07-25] MEDS: LIDOCAINE 1% 5ML PF VIAL IM (10:07)
[2024-07-25 10:13] VITALS: BP 143/63; PULSE 63; RESP 18; TEMP 36.8; O2SAT 98
== END 2024-07-25 10:14 | disposition home or self-care (01) ==
PROVIDERS: Emergency Provider Nurse Practitioner Family; PCP Family Medicine
DX: K04.7 Periapical abscess without sinus (principal)
CPT/HCPCS: 96372; 99213; G0381; J0696

== ENCOUNTER 2024-12-21 10:41 | Outpatient (CLI) | payer MEDICARE, SELFPAY ==
[2024-12-21 19:07] LABS: Basophils % 0.9 % (0.1-2.0); Eosinophils # 0.1 K/mm3 (0.0-0.4); Eosinophils % 1.9 % (0.1-12.0); Hemoglobin 13.4 g/dL (12.2-16.2); Lymphocytes # 1.2 K/mm3 (0.7-4.5); Lymphocytes % 28.1 % (10-50); Mean Corpuscular HGB Conc 32.7 g/dL (31.8-35.4); Mean Corpuscular Hemoglobin 31.8 pg (27.0-31.2); Mean Corpuscular Volume 97.4 fl (81-99); Mean Platelet Volume 9.8 fl (7.4-10.4); Monocytes # 0.4 K/mm3 (0.1-1.0); Monocytes % 9.7 % (1.7-9.3); Neutrophils # 2.6 K/mm3 (1.8-7.8); Neutrophils % 59.2 % (37.0-80.0); Platelet Count 326 K/mm3 (142-424); Red Blood Count 4.21 M/mm3 (4.20-5.40); Red Cell Distribution Width 13.5 % (11.5-17.5); White Blood Count 4.3 K/mm3 (4.8-10.8)
[2024-12-21 19:36] LABS: Erythrocyte Sedimentation Rate 38 mm/hr (0-30)
[2024-12-21 19:39] LABS: Alanine Aminotransferase 17 U/L (12-78); Albumin Level 4.3 g/dl (3.5-5.0); Albumin/Globulin Ratio 1.5 (1.1-1.8); Alkaline Phosphatase 125 U/L (38-126); Anion Gap 14.3 mEq/L (5-15); Aspartate Amino Transferase 26 U/L (14-36); Bilirubin,Total 0.6 mg/dl (0.2-1.3); Blood Urea Nitrogen 11 mg/dl (7-17); Calcium 9.2 mg/dl (8.4-10.2); Carbon Dioxide 29 mmol/L (22.0-30.0); Chloride 102 mmol/L (98-107); Estimated Glomerular Filt Rate 98 ml/min (>60); GFR (African American) 118 ML/MIN (>60); Globulin 2.8 g/dL (1.3-3.2); Glucose 64 mg/dl (74-100); Potassium 4.3 mmoL/L (3.5-5.1); Sodium 141 mmol/L (136-145); Total Protein,Serum 7.1 g/dl (6.3-8.2); Uric Acid 4.4 mg/dl (2.5-6.2)
[2024-12-21 19:46] LABS: C-Reactive Protein 3.6 mg/L (0-4)
[2024-12-23 05:08] LABS: RA Latex Turbid. 13.4 IU/mL (<14.0)
[2024-12-23 12:12] LABS: Anti-Centromere B Antibodies 0.2 AI (0.0-0.9); Anti-DNA (DS) Ab Qn 1 IU/mL (0-9); Anti-Jo-1 <0.2 AI (0.0-0.9); Anti-Smith Antibody <0.2 AI (0.0-0.9); Antichromatin Antibodies <0.2 AI (0.0-0.9); Antiscleroderma-70 Antibodies <0.2 AI (0.0-0.9); RNP Antibodies <0.2 AI (0.0-0.9); Sjogren's Anti-SS-A <0.2 AI (0.0-0.9); Sjogren's Anti-SS-B <0.2 AI (0.0-0.9)
[2024-12-24 08:22] LABS: Antinuclear Antibodies, IFA Negative (.)
== END 2024-12-21 23:59 | disposition home or self-care (01) ==
LOC: LAB.DROPOF 12-22 09:48
PROVIDERS: PCP Nurse Practitioner; Visit Provider Nurse Practitioner
DX: M25.50 Pain in unspecified joint (principal)
CPT/HCPCS: 80053; 84550; 85025; 85651; 86038; 86140; 86225; 86235; 86431

== ENCOUNTER 2024-12-29 10:10 | Outpatient (POV) | payer MEDICARE, SELFPAY ==
--- OUTSIDE RECORDS SUMMARY | 2024-12-29 10:14 | XMS_ITS ---
Laboratory report Created on: December 28, 2024 KATRINA SHIPLEY : 1950 Sex: Female Author Organization Unknown PROBLEMS Problems List Code Description RESULTS Laboratory Orders Date Order Code Test 2024-12-21 [id number] ANTINUCLEAR AB 9 BY MULTIPLEX 2024-12-21 [id number] RHEUMATOID FACTO R (RF) 2024-12-21 [id number] TYRONE BY IFA RFX T ITER/PATTERN Laboratory Results Date LOINC Test Value Unit Reference Range Interpre tation 2024-12-21 5130-0 ANTI-DNA (DS) AB QN 1 IU/ML 0-9 2024-12-21 [id number] CLAIMS ADJUSTER ANTIBODIES <0.2 AI 0.0-0.9 2024-12-21 [id number] LEON ANTIBODIES <0.2 AI 0.0-0.9 2024-12-21 51416-0 ANTISCLERODERMA- 70 ANTIBODIES <0.2 AI 0.0-0.9 2024-12-21 [id number] SJOGREN'S ANTI-SS-A <0.2 AI 0.0-0.9 2024-12-21 [id number] SJOGREN'S ANTI-SS-B <0.2 AI 0.0-0.9 2024-12-21 54423-5 ANTICHROMATIN ANTIBODIES <0.2 AI 0.0-0.9 2024-12-21 40051-0 ANTI-RODRICK-1 <0.2 AI 0.0-0.9 2024-12-21 [id number] ANTI-CENTROMERE B ANTIBODIES .2 AI 0.0-0.9 2024-12-21 [id number] RHEUMATOID FACTOR (RF) 13.4 IU/ML <14.0 2024-12-21 40488-5 TYRONE BY IFA RFX TITER/PATTERN N
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
[2024-12-29 10:40] VITALS: BP 116/62; PULSE 65; RESP 18; O2SAT 98; BMI 18.6
== END 2024-12-29 23:59 | disposition home or self-care (01) ==
LOC: SC.PAIN 10:13
PROVIDERS: PCP Family Medicine; Visit Provider Nurse Practitioner Family
DX: M47.812 Spondylosis without myelopathy or radiculopathy, cervical region (principal); M54.2 Cervicalgia; M51.369 Other intervertebral disc degeneration, lumbar region without mention of lumbar back pain or lower extremity pain; M51.34 Other intervertebral disc degeneration, thoracic region; M54.9 Dorsalgia, unspecified; G89.29 Other chronic pain; Z73.89 Other problems related to life management difficulty
CPT/HCPCS: 99202; G0463

== ENCOUNTER 2025-09-06 08:42 | Outpatient (CLI) | payer MEDICARE, SELFPAY ==
[2025-09-06 14:51] LABS: Hematocrit 37.2 % (37.0-47.0); Hemoglobin 12.8 g/dL (12.2-16.2); Immature Granulocytes % 0.3 %; Mean Corpuscular HGB Conc 34.4 g/dL (31.8-35.4); Mean Corpuscular Hemoglobin 32.4 pg (27.0-31.2); Mean Corpuscular Volume 94.2 fl (81-99); Nucleated Red Blood Cells % 0 %; Platelet Count 279 K/mm3 (142-424); Red Blood Count 3.95 M/mm3 (4.20-5.40); Red Cell Distribution Width-SD 44.2 fL; White Blood Count 6.5 K/mm3 (4.8-10.8)
[2025-09-06 15:16] LABS: Albumin Level 4.5 g/dl (3.5-5.0); Chloride 104 mmol/L (98-107)
[2025-09-06 15:17] LABS: Potassium 4.1 mmoL/L (3.5-5.1); Sodium 139 mmol/L (136-145)
[2025-09-06 15:19] LABS: Alanine Aminotransferase 14 U/L (12-78); Anion Gap 12.1 mEq/L (5-15); Aspartate Amino Transferase 23 U/L (14-36); Blood Urea Nitrogen 9 mg/dl (7-17); Carbon Dioxide 27 mmol/L (22.0-30.0); Creatinine,Serum 0.70 mg/dl (0.52-1.04); Estimated Glomerular Filt Rate 82 ml/min (>60); GFR (African American) 99 ML/MIN (>60)
[2025-09-06 15:20] LABS: Albumin/Globulin Ratio 1.8 (1.1-1.8); Alkaline Phosphatase 119 U/L (38-126); Bilirubin,Total 0.4 mg/dl (0.2-1.3); Calcium 9.8 mg/dl (8.4-10.2); Globulin 2.5 g/dL (1.3-3.2); Glucose 91 mg/dl (74-100); Total Protein,Serum 7.0 g/dl (6.3-8.2)
[2025-09-06 17:31] LABS: Thyroid Stimulating Hormone 1.74 uIU/mL (0.465-4.68)
--- OUTSIDE RECORDS SUMMARY | 2025-09-09 08:48 | XMS_ITS | Clinical Summary ---
Author Organization [facility] Address [address] [place] [address] Care Team Providers Care Slip Operator Name Role Phone Subhash Arevalo MD Primary Care Provider [phone] Social History Tobacco Use Types Packs/Day Years [...] or (1 - 1-dose 75+ series) 2025 [id number] Vaccine ( - 2024- season) 2025 08/26/2022, [...] complete this topic Insurance MEDICARE Care Teams Slip Operator Relationship Specialty Start Date End Date Subhash Arevalo MD PCP - General 12/09/22
--- OUTSIDE RECORDS SUMMARY | 2025-09-09 08:48 | XMS_ITS | Clinical Summary ---
Author Organization [facility] Address [address] [place] [address] Phone Care Team Providers Care Compressed Gases Tester Name Role Phone Justus Carson MD, [facility] Primary Care Provid er Allergies No known [...] [place] PART A AND B Care Teams Compressed Gases Tester Relationship Specialty Start Date End Date Forrest Jerome Sr., MD [address] [place] [address] [place] [phone] PCP - General Pyrotechnics Press Tender 05/25/14
--- OUTSIDE RECORDS SUMMARY | 2025-09-09 08:48 | XMS_ITS | Encounter Summary ---
Author Organization [facility] Address [address] [place] [address] Care Team Providers Care Purchasing Internship Name Role Phone Janey Darling Unavailable Chapincito Christopher DMD Unavailable [phone] Subhash Arevalo MD Primary Care Provider [phone] Encounter Details Date Type Department Care Team (Late st Contact Info) Description 06/18/2019 [facility] [address] [place] [phone] Dental, Provider, DDS [address] [place] [address] Social History Tobacco Use Types Packs/Day [...] on filedocumented in this encounter Care Teams Purchasing Internship Relationship Specialty Start Date End Date Subhash Arevalo MD [address] [place] [address] PCP - General 12/09/22 Janey Darling Dentist Dental Piano Mover 03/01/21 Chapincito Christopher, DMD [address] [place] [address] Dental Student 03/01/21 12/24/21 documented as of this encounter
--- OUTSIDE RECORDS SUMMARY | 2025-09-09 08:48 | XMS_ITS ---
Author Organization Unknown ENCOUNTERS Encounter Performer Location Date Diagnosis Diagnosis Status Pre Admit [facility] ([facility]) [address] [place] [address] [id number] Emergency [facility] ([facility]) [address] [place] [address] [id number] [facility] [address] [place] [place] [address] [id number] [place] *Note: Encounters from your own facility or health system may be excluded. Allergies, Adverse Reactions, Alerts Allergen Type Severity Identification Date atropine drug allergy 2 [id number] acetaminophen drug allergy 0 [id number] codeine drug allergy 2 07521894 celecoxib drug allergy 2 62264669 hydrocodone drug allergy 0 30149399 montelukast drug allergy 2 30915297 buspirone drug allergy 2 12658379 loratadine drug allergy 2 89224621 guaifenesin drug allergy 2 21009115 gabapentin drug allergy 2 60278306 sertraline drug allergy 2 15547799 bupropion drug allergy 0 47341755 paroxetine drug allergy 0 59735361 Medications Name Date Quantity Days Supplied [facility] Number
== END 2025-09-06 23:59 | disposition home or self-care (01) ==
LOC: LAB.DROPOF 09-09 08:46
PROVIDERS: PCP Family Medicine; Visit Provider Nurse Practitioner
DX: R06.02 Shortness of breath (principal); R00.1 Bradycardia, unspecified; R68.89 Other general symptoms and signs
CPT/HCPCS: 80053; 84443; 85025

== ENCOUNTER 2025-09-09 08:19 | Outpatient (CLI) | payer MEDICARE, SELFPAY ==
--- OUTSIDE RECORDS SUMMARY | 2025-09-09 08:21 | XMS_ITS | Clinical Summary ---
Author Organization [facility] Address [address] [place] [address] Phone Care Team Providers Care Truck Body Repairer Name Role Phone Justus Carson MD, [facility] Primary Care Provid er Allergies No known active allergies Medications No known medications Social History Tobacco Use Types Packs/Day Years Used Date Smoking Tobacco: Never Assessed Comments Unknown Sex and Gender Information Value Date Recorded Sex Assigned at Not on file Legal Sex Female 11:18 PM EDT Gender Identity Not on file Sexual Orientation Not on file Plan of Treatment Health Maintenance Due Date Last Done Comments Wellness Exam Medicare 1953 Hepatitis C Screening 02/02/1968 DTaP/TDaP/Td (1 - Tdap) 1969 Cologuard 1995 Colon Cancer Screening 1995 Colonoscopy 1995 FIT 1995 Sigmoidoscopy 1995 Virtual Colonography 1995 Pneumococcal Vaccine 50+ (1 of 1 - PCV) 02/02/2000 Zoster (1 of 2) 02/02/2000 Bone Density Screening 2015 RSV or 60+ (1 - 1-d ose 75+ series) 2025 COVID-19 Vaccine ( - 2024-2 6 season) 2025 Influenza Vaccine (#1) 2025 Hepatitis B Vaccine Aged Out No longe r eligible based on patient's age to complete this topic Meningococcal B Vaccine Aged Out No l onger eligible based on patient's age to complete this topic Insurance MEDICARE [place] PART A AND B Care Teams Truck Body Repairer Relationship Specialty Start Date End Date Forrest Jerome Sr., MD [address] [place] [address] [place] [id number] PCP - General Agricultural Services Director 05/25/14
--- OUTSIDE RECORDS SUMMARY | 2025-09-09 08:21 | XMS_ITS | Clinical Summary ---
Author Organization [facility] Address [address] [place] [address] Care Team Providers Care Outside Repairer Special Name Role Phone Subhash Arevalo MD Primary Care Provider [phone] Social History Tobacco Use Types Packs/Day Years Used Date Smoking Tobacco: Never Assessed Comments Unknown Sex and Gender Information Value Date Recorded Sex Assigned at Not on file Legal Sex Female 7:35 PM EDT Gender Identity Not on file Sexual Orientation Not on file Plan of Treatment Health Maintenance Due Date Last Done Comments [facility]-Bone Density Scan 1950 [facility]-Depression Screening 1950 [facility]-Infant/Child/Adol SDOH Screenings 1950 [facility]- SDOH Screenings 02/02/1968 [facility]-Adult SDOH Screenings 02/02/1968 CT Colonography 1995 Colonoscopy 1995 FIT-DNA 1995 FIT 1995 FOBT 1995 Sigmoidoscopy 1995 [facility]-Colorectal Cancer Screening 1995 [facility]-DTaP,Tdap,and Td Vaccines (1 - Tdap) 11/21/1996 11/20/1996 [facility]-Pneumococcal Vaccine: 50+ Years (1 of 1 - PCV) 02/02/2000 [facility]-Zoster Vaccines (1 of 2) 02/02/2000 [facility]-RSV Vaccine: 60+ Years or (1 - 1-dose 75+ series) 2025 [id number] Vaccine ( - 2024- season) 2025 08/26/2022, 07/18/2021, 11/08/2020, Additional history exists [facility]-Influenza Vaccine (#1) 2025 06/25/2022, HPV Vaccines (No Doses Required) Completed [facility]-HIB Vaccines Aged Out No longer e ligible based on patient's age to complete this topic [facility]-Hepatitis A Vaccines Aged Out No longer eligible based on patient's age to complete this topic [facility]-IPV Vaccines Aged Out No longer e ligible based on patient's age to complete this topic [facility]-Rotavirus Vaccines Aged Out No lo nger eligible based on patient's age to complete this topic Insurance MEDICARE Care Teams Outside Repairer Special Relationship Specialty Start Date End Date Subhash Arevalo MD PCP - General 12/09/22
--- OUTSIDE RECORDS SUMMARY | 2025-09-09 08:21 | XMS_ITS ---
Laboratory report Created on: August 16, 2025 KATRINA SHIPLEY : 1950 Sex: Female Author Organization Unknown PROBLEMS Problems List Code Description RESULTS Laboratory Orders Date Order Code Test 2024-12-21 [id number] ANTINUCLEAR AB 9 BY MULTIPLEX 2024-12-21 [id number] RHEUMATOID FACTO R (RF) 2024-12-21 [id number] TYRONE BY IFA RFX T ITER/PATTERN Laboratory Results Date LOINC Test Value Unit Reference Range Interpre tation 2024-12-21 [id number] ANTI-DNA (DS) AB QN 1 IU/ML 0-9 2024-12-21 71280-5 DIKE SUPERVISOR ANTIBODIES <0.2 AI 0.0-0.9 2024-12-21 06942-5 LEON ANTIBODIES <0.2 AI 0.0-0.9 2024-12-21 89039-9 ANTISCLERODERMA- 70 ANTIBODIES <0.2 AI 0.0-0.9 2024-12-21 73533-6 SJOGREN'S ANTI-SS-A <0.2 AI 0.0-0.9 2024-12-21 91869-1 SJOGREN'S ANTI-SS-B <0.2 AI 0.0-0.9 2024-12-21 47859-7 ANTICHROMATIN ANTIBODIES <0.2 AI 0.0-0.9 2024-12-21 20705-5 ANTI-RODRICK-1 <0.2 AI 0.0-0.9 2024-12-21 31461-4 ANTI-CENTROMERE B ANTIBODIES .2 AI 0.0-0.9 2024-12-21 55750-9 RHEUMATOID FACTOR (RF) 13.4 IU/ML <14.0 2024-12-21 48300-1 TYRONE BY IFA RFX TITER/PATTERN N
--- OUTSIDE RECORDS SUMMARY | 2025-09-09 08:21 | XMS_ITS | Encounter Summary ---
Author Organization [facility] Address [address] [place] [address] Care Team Providers Care Radio Equipment Installer Name Role Phone Janey Darling Unavailable Chapincito Christopher DMD Unavailable [phone] Subhash Arevalo MD Primary Care Provider [phone] Encounter Details Date Type Department Care Team (Late st Contact Info) Description 06/18/2019 [facility] [address] [place] [id number] Dental, Provider, DDS [address] [place] [address] Social History Tobacco Use Types Packs/Day Years Used Date Smoking Tobacco: Never Assessed Comments Unknown Sex and Gender Information Value Date Recorded Sex Assigned at Not on file Legal Sex Female 7:35 PM EDT Gender Identity Not on file Sexual Orientation Not on file documented as of this encounter Plan of Treatment Not on file documented as of this encounter Visit Diagnoses Not on filedocumented in this encounter Care Teams Radio Equipment Installer Relationship Specialty Start Date End Date Subhash Arevalo MD [address] [place] [address] PCP - General 12/09/22 Janey Darling Dentist Dental Control System Manager 03/01/21 Chapincito Christopher, DMD [address] [place] [address] Dental Student 03/01/21 12/24/21 documented as of this encounter
--- NOTE | 2025-09-09 08:24 | XR_ITS ---
FINAL REPORT CLINICAL HISTORY: SOBOE, bradycardia FINDINGS: No acute pulmonary density is evident. Note is made of emphysema. There is chronic apical pleural scarring. There is no evidence of effusion or other pleural disease. The mediastinum has a normal appearance. The cardiac silhouette is unremarkable. IMPRESSION: Chronic findings. Reviewed, Interpreted and Dictated by Eliseo Amaro MD Transcribed by Katia Jenkins Authenticated and [facility]
--- NOTE | 2025-09-09 08:40 | ECG_ITS ---
APPROVED REPORT Exam: Resting ECG HR:65 bpm ECG Measurements Heart Rate 65 AXES DE 181 P 79 QRSd 90 QRS -20 QT 403 T 83 QTc 415 Conclusion SINUS RHYTHM POSSIBLE LEFT ATRIAL ENLARGEMENT [-0.1mV P-WAVE IN V1/V2] ANTERIOR MYOCARDIAL INFARCTION , OF INDETERMINATE AGE [40+ ms Q WAVE AND/OR ST/T ABNORMALITY IN V3/V4] ABNORMAL ECG UNCONFIRMED REPORT Electronically signed by : Jackson Guadalupe MD 09/09/2025 11:36:40
== END 2025-09-09 23:59 | disposition home or self-care (01) ==
PROVIDERS: PCP Family Medicine; Visit Provider Nurse Practitioner
DX: I25.2 Old myocardial infarction (principal); R00.1 Bradycardia, unspecified; R94.31 Abnormal electrocardiogram [ECG] [EKG]
CPT/HCPCS: 71046; 93005